=== PATIENT | female | born 1960 | race Caucasian/White ===

== ENCOUNTER 2016-11-12 12:38 | Inpatient (IN) | payer MEDICARE, OTHER ==
[~2016-11-12] VITALS: Ht 167.6 cm; Wt 92.0 kg
[~2016-11-12 12:38] MED LIST: ALBU8I INH; CALC500T19 PO; DARU600 PO; DOCU1CAP39 PO; DOLU1TAB PO; HYDRO10 PO; IPRA17I INH; LEVO.1 PO; MAGN500T4 PO; MORP30SU PO; NORV100T PO; OXYC30TA62; PERC5TAB12 PO; TRUV200300 PO; ZOFR4TAB3 SL
[2016-11-12 12:40] VITALS: BP 132/61; PULSE 86; RESP 24; TEMP 97.7; O2SAT 98
--- NOTE | 2016-11-12 17:45 | PD ---
HPI Chief Complaint: Skin Problem Time Seen by Provider: 17:32 Travel History International Travel<30 days: No Contact w/Intl Traveler<30days: No Traveled to known affect area: No History of Present Illness HPI Patient is a 56-year-old female presents emergency department for evaluation of right lower extremity swelling pain and redness. Patient states been going on for 2 days. Patient states that approximately 6 days ago she was bit/scratched by a dog. She didn't think anything of it at the times that she come in the emergency department to be seen. She denies any fever denies abdominal pain nausea vomiting diarrhea. States this is never happened to her before. PFSH Past Medical History Cancer: Yes (SKIN CANCER) COPD: Yes Cerebrovascular Accident: Yes Diminished Hearing: No Immune Disorder: Yes (HIV) Medical other: Yes (omid's disease) Musculoskeletal: Yes (OSTROPOROSIS) Respiratory: Yes (ASTHMA COPD) Thyroid Disease: Yes Tetanus Vaccination: Unknown Influenza Vaccination: Yes ?: Not Menopausal: Yes Tubal Ligation: Yes Past Surgical History Eye Surgery: Yes (CATARACT SURGERY) Social History Alcohol Use: No Tobacco Use: No Substance Use: No Allergies-Medications (Allergen,Severity, Reaction): Coded Allergies: Zidovudine (Unverified Allergy, Intermediate, rash, 11/12/16) Reported Meds & Prescriptions Reported Meds & Active Scripts Active Reported [Hydromorphone Pump] DIRECTED Magnesium 400 Mg Tab 400 Mg PO HS Crestor (Rosuvastatin Calcium) 5 Mg Tab 5 Mg PO MOWEFR Take 1 tablet at bedtime on Friday,Friday and Friday Diclofenac Sodium DR (Diclofenac Sodium) 75 Mg Tabdr 75 Mg PO BID Hydrocortisone 10 Mg Tab 20 Mg PO DAILY Take with food to decrease GI upset Vitamin D3 (Cholecalciferol) 50,000 Unit Cap 50,000 Units PO Q7D Morphine ER (Morphine Sulfate) 15 Mg Tab 15 Mg PO DAILY Thera (Multiple Vitamin) 1 Tab Tab 1 Tab PO DAILY Linzess (Linaclotide) 290 Mcg Cap 290 Mcg PO DAILY Paxil (Paroxetine HCl) 20 Mg Tablet 20 Mg PO DAILY Dhea 50 mg Tablet (Prasterone (Dhea)/Calcium Carb) 1 Each Tablet 50 Mg PO DAILY Aspirin Adult Low Strength (Aspirin) 81 Mg Tabdr 81 Mg PO DAILY Prezcobix (Darunavir-Cobicistat) 800-150 Mg Tab 1 Tab PO DAILY Descovy (Emtricitabine-Tenofovir Alafenamide) 200-25 mg Tab 1 Tab PO DAILY Tivicay (Dolutegravir Sodium) 50 Mg Tab 50 Mg PO DAILY Review of Systems Except as stated in HPI: all other systems reviewed are Neg Physical Exam Narrative GENERAL: Well-developed well-nourished in no obvious distress. SKIN: Significant erythema of the lower extremity from the tibial prominence distally to the toes, circumferential, multiple ulcerative lesions seen on the anterior aspect of the leg. There is the middle phalanx which is also erythematous. The tip of the first distal phalanx has a very small area but appears to be dry gangrene. HEAD: Atraumatic. Normocephalic. EYES: Pupils equal and round. No scleral icterus. No injection or drainage. ENT: No nasal bleeding or discharge. Mucous membranes pink and moist. NECK: Trachea midline. No JVD. CARDIOVASCULAR: Regular rate and rhythm. No murmur appreciated. RESPIRATORY: No accessory muscle use. Clear to auscultation. Breath sounds equal bilaterally. GASTROINTESTINAL: Abdomen soft, non-tender, nondistended. Hepatic and splenic margins not palpable. MUSCULOSKELETAL: No obvious deformities. No clubbing. No cyanosis. 2+ pitting edema of the lower extremity from the knee distally. NEUROLOGICAL: Awake and alert. No obvious cranial nerve deficits. Motor grossly within normal limits. Normal speech. PSYCHIATRIC: Appropriate mood and affect; insight and judgment normal. Data Data Last Documented VS Vital Signs Date Time Temp Pulse Resp B/P Pulse Ox O2 Delivery O2 Flow Rate FiO2 11/12/16 18:40 63 17 138/64 100 Room Air 11/12/16 12:40 97.7 Orders Complete Blood Count With Diff (11/12/16 17:54) Comprehensive Metabolic Panel (11/12/16 17:54) Prothrombin Time / Inr (Pt) (11/12/16 17:54) Act Partial Throm Time (Ptt) (11/12/16 17:54) Lactic Acid Sepsis Protocol (11/12/16 17:54) Magnesium (Mg) (11/12/16 17:54) Phosphorus (Po4) (11/12/16 17:54) Urinalysis - C+S If Indicated (11/12/16 17:54) Blood Culture (11/12/16 17:54) Ecg Monitoring (11/12/16 17:54) Iv Access Insert/Monitor (11/12/16 17:54) Oximetry (11/12/16 17:54) Oxygen Administration (11/12/16 17:54) Chest, Single Ap (11/12/16 ) Shoulder, Complete (>2vws) (11/12/16 ) Urine Culture (11/12/16 18:00) Tibia/Fibula (Ap/Lat) (11/12/16 ) Us Leg Venous Doppler (11/12/16 19:18) Vancomycin Inj (Vancomycin Inj) (11/12/16 19:30) Piperacil-Tazo 4.5 Gm Premix (Zosyn 4.5 (11/12/16 19:30) Admit Order (Ed Use Only) (11/12/16 ) Labs Laboratory Tests Test 11/12/16 11/12/16 18:00 18:10 White Blood Count 8.4 TH/MM3 Red Blood Count 3.92 MIL/MM3 Hemoglobin 12.8 GM/DL Hematocrit 37.5 % Mean Corpuscular Volume 95.8 FL Mean Corpuscular Hemoglobin 32.6 PG Mean Corpuscular Hemoglobin 34.0 % Concent Red Cell Distribution Width 15.4 % Platelet Count 104 TH/MM3 Mean Platelet Volume 9.0 FL Neutrophils (%) (Auto) 91.1 % Lymphocytes (%) (Auto) 5.9 % Monocytes (%) (Auto) 2.7 % Eosinophils (%) (Auto) 0.2 % Basophils (%) (Auto) 0.1 % Neutrophils # (Auto) 7.7 TH/MM3 Lymphocytes # (Auto) 0.5 TH/MM3 Monocytes # (Auto) 0.2 TH/MM3 Eosinophils # (Auto) 0.0 TH/MM3 Basophils # (Auto) 0.0 TH/MM3 CBC Comment DIFF FINAL Differential Comment Prothrombin Time 10.1 SEC Prothromb Time International 0.9 RATIO Ratio Activated Partial 25.9 SEC Thromboplast Time Urine Color YELLOW Urine Turbidity HAZY Urine pH 6.0 Urine Specific [place] 1.021 Urine Protein 30 mg/dL Urine Glucose (UA) 300 mg/dL Urine Ketones NEG mg/dL Urine Occult Blood SMALL Urine Nitrite NEG Urine Bilirubin NEG Urine Urobilinogen LESS THAN 2.0 MG/DL Urine Leukocyte Esterase NEG Urine RBC 9 /hpf Urine WBC 3 /hpf Urine Squamous Epithelial <1 /hpf Cells Urine Amorphous Sediment RARE Urine Bacteria MANY /hpf Microscopic Urinalysis Comment CATH-CULTURE IND Sodium Level 137 MEQ/L Potassium Level 3.6 MEQ/L Chloride Level 102 MEQ/L Carbon Dioxide Level 30.1 MEQ/L Anion Gap 5 MEQ/L Blood Urea Nitrogen 26 MG/DL Creatinine 1.00 MG/DL Estimat Glomerular Filtration 58 ML/MIN Rate Random Glucose 193 MG/DL Calcium Level 9.5 MG/DL Phosphorus Level 2.0 MG/DL Magnesium Level 2.3 MG/DL Total Bilirubin 0.3 MG/DL Aspartate Amino Transf 45 U/L (AST/SGOT) Alanine Aminotransferase 72 U/L (ALT/SGPT) Alkaline Phosphatase 62 U/L Total Protein 6.3 GM/DL Albumin 2.5 GM/DL Lactic Acid Level 2.0 mmol/L MDM Medical Decision Making Medical Screen Exam Complete: Yes Emergency Medical Condition: Yes Differential Diagnosis Advanced dog bite cellulitis of lower extremity, DVT, sepsis Narrative Course Patient roomed in emergency department, she was given vancomycin and Zosyn, her labs are reassuring, DVT ultrasound negative. The patient also had complaints of shoulder pain secondary to a fall as well as cough. X-rays of her shoulder and chest were negative. X-rays of her tib-fib showed no gas pockets in her cellulitis is not progressed while in the emergency department. Discussed with Dr. Haile my concern for advanced cellulitis in the presence of a dog bite/ scratch requires inpatient therapy and she is agreeable. Diagnosis Primary Impression: Pasteurella cellulitis due to dog bite Disposition: DISCHARGE HOME Condition: Stable Mika Grey MD Nov 12, 2016 17:45
[2016-11-12 18:16] VITALS: O2SAT 97
[2016-11-12] MEDS ORDERED: ASPI1TAB91 PO (18:28)
[2016-11-12] MEDS ORDERED: PAXI20TA10 PO (18:28)
[2016-11-12] MEDS ORDERED: LINA290C PO (18:28)
[2016-11-12] MEDS ORDERED: ROSU5 PO (18:28)
[2016-11-12] MEDS ORDERED: THERTAB56 PO (18:28)
[2016-11-12] MEDS ORDERED: MORP1TAB24 PO (18:28)
[2016-11-12] MEDS ORDERED: DHEA50TA2 PO (18:28)
[2016-11-12] MEDS ORDERED: HYDROMORPHONE (18:28)
[2016-11-12] MEDS ORDERED: DICL75TA PO (18:28)
[2016-11-12] MEDS ORDERED: CHOL1CAP34 PO (18:28)
[2016-11-12] MEDS ORDERED: HYDR10TA65 PO (18:28)
[2016-11-12] MEDS ORDERED: DOLU1TAB PO (18:28)
[2016-11-12] MEDS ORDERED: EMTR1TAB4 PO (18:28)
[2016-11-12] MEDS ORDERED: DARU1TAB2 PO (18:28)
[2016-11-12] MEDS ORDERED: MAGN1TAB14 PO (18:28)
[2016-11-12] MEDS ORDERED: HYDROMORPHONE PUMP (18:30)
[2016-11-12 18:37] LABS: AUTOMATED NEUTROPHIL # 7.7 TH/MM3 (1.8-7.7); BASOPHIL % 0.1 % (0.0-2.0); EOSINOPHIL % 0.2 % (0.0-4.0); HEMATOCRIT 37.5 % (35.0-46.0); HEMO FLAGS DIFF FINAL; LYMPH % 5.9 % (9.0-44.0); LYMPHOCYTE # 0.5 TH/MM3 (1.0-4.8); MEAN CELL VOLUME 95.8 FL (80.0-100.0); MEAN CORPUSCULAR HEMOGLOBIN 32.6 PG (27.0-34.0); MONO % 2.7 % (0.0-8.0); NEUT % 91.1 % (16.0-70.0); PLATELET COUNT 104 TH/MM3 (150-450); RED BLOOD COUNT 3.92 MIL/MM3 (4.00-5.30); RED CELL DISTRIBUTION WIDTH 15.4 % (11.6-17.2); WHITE BLOOD COUNT 8.4 TH/MM3 (4.0-11.0)
[2016-11-12 18:38] LABS: BACTERIA, URINE MANY /hpf; BLOOD, URINE SMALL (NEG); GLUCOSE,URINE 300 mg/dL (NEG); KETONE, URINE NEG (NEG); NITRITE,URINE NEG (NEG); SQUAMOUS EPITHELIAL CELL URINE <1 /hpf (0-5); URINE COLOR YELLOW (YELLW/STRAW)
[2016-11-12 18:40] VITALS: BP 138/64; PULSE 63; RESP 17; O2SAT 100
[2016-11-12 18:40] LABS: COMMENT (UR) CATH-CULTURE IND; CULTURE IF INDICATED CATH CULTURE IND
--- NOTE | 2016-11-12 18:45 | RADRPT ---
EXAM DATE/TIME: 11/12/2016 18:36 [facility] COMPARISON: No previous studies available for comparison. INDICATIONS : Chest pain. MEDICAL HISTORY : None. SURGICAL HISTORY : Bilateral shoulder replacements. ENCOUNTER: Initial ACUITY: 1 day PAIN SCORE: 0/10 LOCATION: Bilateral chest FINDINGS: A single view of the chest demonstrates the lungs to be symmetrically aerated without evidence of mas s, infiltrate or effusion. Linear radiopaque densities in the upper lobes. Minimal subsegmental atele ctasis versus scar in the lower lobes. Heart mildly enlarged. The cardiomediastinal contours are unre markable. Bilateral humeral prostheses. CONCLUSION: 1. Bilateral upper lobe and bibasilar scarring. 2. Cardiomegaly. Roberto Foss MD on November 12, 2016 at 18:41 Board Certified Radiologist. This report was verified electronically.
--- NOTE | 2016-11-12 18:47 | RADRPT ---
EXAM DATE/TIME: 11/12/2016 18:37 [facility] COMPARISON: No previous studies available for comparison. INDICATIONS : Shoulder pain. MEDICAL HISTORY : None. SURGICAL HISTORY : Bilateral shoulder replacements. ENCOUNTER: Initial ACUITY: 1 day PAIN SCORE: 0/10 LOCATION: Left shoulder FINDINGS: Multiple view examination of the left shoulder demonstrates Left humeral prosthesis. No hardware loos ening or humeral fracture. Large bony fragment seen inferiorly likely part of the glenoid. This is li estephanie chronic. Bony mineralization is normal. CONCLUSION: 1. Left humeral prosthesis. 2. Large ossified density likely related to fragment arising from the inferior glenoid. This is likel y related to chronic fracture. Roberto Foss MD on November 12, 2016 at 18:44 Board Certified Radiologist. This report was verified electronically.
[2016-11-12 18:52] LABS: APTT (PATIENT) 25.9 SEC (24.3-30.1); INTERNATIONAL NORMALIZED RATIO 0.9 RATIO; PROTHROMBIN TIME - PATIENT 10.1 SEC (9.8-11.6)
[2016-11-12 19:03] LABS: ANION GAP 5 MEQ/L (5-15); AST (GOT) 45 U/L (15-37); BICARBONATE 30.1 MEQ/L (21.0-32.0); BLOOD UREA NITROGEN 26 MG/DL (7-18); CHLORIDE 102 MEQ/L (98-107); GLOMERULAR FILTRATION RATE 58 ML/MIN (>89); MAGNESIUM 2.3 MG/DL (1.5-2.5); POTASSIUM 3.6 MEQ/L (3.5-5.1); SODIUM (NA) 137 MEQ/L (136-145)
[2016-11-12 19:04] LABS: ALT (GPT) 72 U/L (10-53)
[2016-11-12 19:07] LABS: ALKALINE PHOSPHATASE 62 U/L (45-117); TOTAL BILIRUBIN ADULT 0.3 MG/DL (0.2-1.0)
[2016-11-12] MEDS ORDERED: VANCOMYCIN INJ 1,000 MG in SODIUM CHLOR 0.9% 250 ML INJ 250 ML IV ONE (19:30)
[2016-11-12] MEDS ORDERED: PIPERACIL-TAZO 4.5 GM PREMIX 100 ML IV ONE (19:30)
--- NOTE | 2016-11-12 19:46 | RADRPT ---
EXAM DATE/TIME: 11/12/2016 19:20 [facility] COMPARISON: No previous studies available for comparison. INDICATIONS : Right leg pain and swelling. MEDICAL HISTORY : None. SURGICAL HISTORY : None. ENCOUNTER: Initial ACUITY: 1 week PAIN SCORE: 10/10 LOCATION: Right leg. FINDINGS: Two view examination of the right tibia demonstrates no evidence of fracture or dislocation. Bony mi neralization is normal. Diffuse soft tissue swelling. Small defect in the skin medially along the mid to lower left leg. CONCLUSION: Soft tissue swelling with possible skin defect. No acute bony abnormality. Roberto Foss MD on November 12, 2016 at 19:43 Board Certified Radiologist. This report was verified electronically.
--- NOTE | 2016-11-12 20:11 | RADRPT ---
EXAM DATE/TIME: 11/12/2016 19:35 [facility] COMPARISON: No previous studies available for comparison. INDICATIONS : Right leg redness and swelling. MEDICAL HISTORY : Chronic obstructive pulmonary disease. Thyroid disease. Cerebrovascular a ccident. Asthma. HIV. Osteoporosis. Carcinoma, skin. [place]'s disease. SURGICAL HISTORY :Tubal ligation. Cataract surgery. Bilateral shoulder replacement. ENCOUNTER: Initial ACUITY: 1 week PAIN SCORE: 8/10 LOCATION: Right leg. TECHNIQUE: Venous ultrasound of the leg was performed from the inguinal ligament to the proximal calf. Real-time, color Doppler and spectral tracing, compression and augmentation techniques were us ed. FINDINGS: There is normal compressibility of the deep venous system from the inguinal region to the proximal ca lf. No echogenic clot is seen in the lumen of the common femoral, femoral, popliteal, and posterior tibial veins. There is a normal response of the venous system to proximal and distal augmentation an d respiration. CONCLUSION: No DVT right leg Roberto Foss MD on November 12, 2016 at 20:02 Board Certified Radiologist. This report was verified electronically.
[2016-11-12] MEDS ORDERED: SODIUM CHLORIDE 0.9% FLUSH 10 ML FLUSH IV FLUSH PRN (21:45)
[2016-11-12] MEDS ORDERED: NALOXONE HCL 0.4 MG/ML AMP IV PRN (21:45)
[2016-11-12 22:00] VITALS: BP 150/80; PULSE 75; RESP 16; O2SAT 95
[2016-11-13 02:17] VITALS: BP 166/85; PULSE 60; RESP 20; TEMP 98; O2SAT 92
[2016-11-13] MEDS: CLINDAMYCIN INJ 900 MG in SODIUM CHLORIDE 0.9% INJ 100 ML IV SCH ×4 (03:04→23:06)
[2016-11-13] MEDS: AMPICILLIN-SULBACTAM INJ 3 GM in SODIUM CHLORIDE 0.9% INJ 100 ML IV SCH ×4 (03:42→21:34)
[2016-11-13 04:02] VITALS: PULSE 56
[2016-11-13 08:00] VITALS: BP 180/80; PULSE 59; RESP 18; TEMP 96.3; O2SAT 99
[2016-11-13] MEDS: SODIUM CHLORIDE 0.9% FLUSH 10 ML FLUSH IV FLUSH SCH ×2 (09:00→21:35)
--- NOTE | 2016-11-13 10:48 | HHI.HP ---
[facility] Service [facility] Primary Care Physician Non-Staff Admission Diagnosis Dog Bite Cellulitis. Diagnoses: Chief Complaint: leg infection Travel History International Travel<30 Days: No Contact w/Intl Traveler <30 Da: No Traveled to Known Affected Are: No History of Present Illness Written by Steffany Borrero, acting as scribe for Dr. Veronica on 11/13/16 at 10:43. This note was transcribed by scribOLYA Wooten. I, Dr. Sal Veronica personally performed the history, physical exam, and medical decision making; and confirmed the accuracy of the information in the transcribed note. Authenticated by Dr. Sal Veronica on 11/13/16 at 22:14. 56-year-old female with history of [place]'s disease, HIV, asthma, COPD, osteoporosis, chronic pain with Dilaudid pain pump, presents with multiple complaints including right leg infection [id number], left shoulder pain, fall, sore throat, and cough. The patient's main concern is her right leg infection. She reports 1 month ago her dog jumped up into her bed and scratched her right leg resulting in a wound. She states she has been trying to keep it clean, and finished a course of unknown oral antibiotics prescribed by her PCP however her symptoms continue to worsen. She states she's also been in a swimming pool which she believes is making it worse. She states then 2 days ago her right leg became significantly more erythematous, edematous, and painful; denies any drainage. She reports subjective fevers at home, temp 99.8. She also reports left shoulder pain after a fall. She states she tripped going up the stairs. She states she's fallen 3 times recently. Denies loss of consciousness. She also reports sore throat which she believes is related to thrush. She has been taking nystatin for thrush with not much relief. She has cough productive of green sputum. Denies any chest pain or shortness of breath. She follows with Dr. Becker for HIV, compliant with medications, reportedly last CD4 count over 800. The patient has no other medical complaints at this time. 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 Becker Chronic pain COPD/asthma Past Surgical History Kyphoplasty x2 Shoulder replacement x2 Pain pump placement Cataract surgery Reported Medications [Hydromorphone Pump] DIRECTED Magnesium 400 Mg Tab 400 Mg PO HS Crestor (Rosuvastatin Calcium) 5 Mg Tab 5 Mg PO MOWEFR Take 1 tablet at bedtime on Friday,Friday and Friday Diclofenac Sodium DR (Diclofenac Sodium) 75 Mg Tabdr 75 Mg PO BID Hydrocortisone 10 Mg Tab 20 Mg PO DAILY Take with food to decrease GI upset Vitamin D3 (Cholecalciferol) 50,000 Unit Cap 50,000 Units PO Q7D Morphine ER (Morphine Sulfate) 15 Mg Tab 15 Mg PO DAILY Thera (Multiple Vitamin) 1 Tab Tab 1 Tab PO DAILY Linzess (Linaclotide) 290 Mcg Cap 290 Mcg PO DAILY Paxil (Paroxetine HCl) 20 Mg Tablet 20 Mg PO DAILY Dhea 50 mg Tablet (Prasterone (Dhea)/Calcium Carb) 1 Each Tablet 50 Mg PO DAILY Aspirin Adult Low Strength (Aspirin) 81 Mg Tabdr 81 Mg PO DAILY Prezcobix (Darunavir-Cobicistat) 800-150 Mg Tab 1 Tab PO DAILY Descovy (Emtricitabine-Tenofovir Alafenamide) 200-25 mg Tab 1 Tab PO DAILY Tivicay (Dolutegravir Sodium) 50 Mg Tab 50 Mg PO DAILY Allergies: Coded Allergies: Zidovudine (Unverified Allergy, Intermediate, rash, 11/12/16) Active Ordered Medications Current Medications Medications (Trade) Dose Ordered Sig/Cornelius Route Start Time Stop Time Status Last Admin (NS Flush) 2 ml UNSCH PRN IV FLUSH 11/12/16 21:45 (NS Flush) 2 ml BID IV FLUSH 11/13/16 09:00 11/13/16 09:00 Naloxone HCl 0.4 mg 0.4 mg UNSCH PRN IV 11/12/16 21:45 Ampicillin Sodium/ Sulbactam Sodium 3 gm/Sodium Chloride 100 ml @ 200 mls/hr Q6H IV 11/13/16 03:00 11/13/16 10:13 (Cleocin Inj/NS Inj) 106 ml @ 212 mls/hr Q6H IV 11/13/16 02:00 11/13/16 08:57 Family History Patient is adopted, does not know biological history. Social History Prior tobacco use, smoked cigarettes for 25years, quit in 2014 Denies any current tobacco, alcohol, or illicit drug use. Physical Exam Vital Signs Vital Signs Date Time Temp Pulse Resp B/P Pulse Ox O2 Delivery O2 Flow Rate FiO2 11/13/16 04:02 56 11/13/16 02:17 98.0 60 20 166/85 92 11/12/16 22:00 75 16 150/80 95 Room Air 11/12/16 18:40 63 17 138/64 100 Room Air 11/12/16 18:16 97 Room Air 11/12/16 18:16 97 Room Air 11/12/16 12:40 97.7 86 24 132/61 98 Physical Exam GENERAL: Well-nourished, well-developed obese female patient in [facility]. SKIN: Warm and dry. RLE with diffuse erythema/warmth/edema, open wound to medial smith approx 2cm, smaller wound at anterior smith with minimal purulent drainage. HEAD: Normocephalic. Atraumatic. EYES: Pupils equal and round. No scleral icterus. No injection or drainage. ENT: No nasal bleeding or discharge. Mucous membranes pink and moist. Erythematous oropharyngeal mucosa with overlying white plaques. NECK: Supple. Trachea midline. CARDIOVASCULAR: Regular rate and rhythm. S1, S2 noted. No murmur appreciated. RESPIRATORY: No accessory muscle use. Clear to auscultation. Breath sounds equal bilaterally. GASTROINTESTINAL: Abdomen soft, non-tender, nondistended. Normoactive bowel sounds x4. MUSCULOSKELETAL: No obvious deformities. 2+ right lower extremity edema, 1+ left lower extremity edema. NEUROLOGICAL: Awake and alert. No obvious cranial nerve deficits. Motor grossly within normal limits. Normal speech. PSYCHIATRIC: Appropriate mood and affect; insight and judgment normal. Laboratory Laboratory Tests Test 11/12/16 11/12/16 18:00 18:10 White Blood Count 8.4 Red Blood Count 3.92 Hemoglobin 12.8 Hematocrit 37.5 Mean Corpuscular Volume 95.8 Mean Corpuscular Hemoglobin 32.6 Mean Corpuscular Hemoglobin 34.0 Concent Red Cell Distribution Width 15.4 Platelet Count 104 Mean Platelet Volume 9.0 Neutrophils (%) (Auto) 91.1 Lymphocytes (%) (Auto) 5.9 Monocytes (%) (Auto) 2.7 Eosinophils (%) (Auto) 0.2 Basophils (%) (Auto) 0.1 Neutrophils # (Auto) 7.7 Lymphocytes # (Auto) 0.5 Monocytes # (Auto) 0.2 Eosinophils # (Auto) 0.0 Basophils # (Auto) 0.0 CBC Comment DIFF FINAL Differential Comment Prothrombin Time 10.1 Prothromb Time International 0.9 Ratio Activated Partial 25.9 Thromboplast Time Urine Color YELLOW Urine Turbidity HAZY Urine pH 6.0 Urine Specific [place] 1.021 Urine Protein 30 Urine Glucose (UA) 300 Urine Ketones NEG Urine Occult Blood SMALL Urine Nitrite NEG Urine Bilirubin NEG Urine Urobilinogen LESS THAN 2.0 Urine Leukocyte Esterase NEG Urine RBC 9 Urine WBC 3 Urine Squamous Epithelial <1 Cells Urine Amorphous Sediment RARE Urine Bacteria MANY Microscopic Urinalysis Comment CATH-CULTURE IND Sodium Level 137 Potassium Level 3.6 Chloride Level 102 Carbon Dioxide Level 30.1 Anion Gap 5 Blood Urea Nitrogen 26 Creatinine 1.00 Estimat Glomerular Filtration 58 Rate Random Glucose 193 Calcium Level 9.5 Phosphorus Level 2.0 Magnesium Level 2.3 Total Bilirubin 0.3 Aspartate Amino Transf 45 (AST/SGOT) Alanine Aminotransferase 72 (ALT/SGPT) Alkaline Phosphatase 62 Total Protein 6.3 Albumin 2.5 Lactic Acid Level 2.0 Date/Time Procedure Status Source Growth 11/12/16 18:10 Aerobic Blood Culture Received Blood Peripheral Pending 11/12/16 18:10 Anaerobic Blood Culture Received Blood Peripheral Pending 11/12/16 18:00 Urine Culture Received Urine Catheterized Urine Pending Result Diagram: 11/12/16 1800 11/12/16 1800 Imaging Last Impressions Lower Extremity Ultrasound 11/12/16 1918 Signed Impressions: Service Date/Time: Saturday, November 12, 2016 19:35 - CONCLUSION: No DVT right leg Roberto Foss MD Tibia/Fibula X-Ray 11/12/16 0000 Signed Impressions: Service Date/Time: Saturday, November 12, 2016 19:20 - CONCLUSION: Soft tissue swelling with possible skin defect. No acute bony abnormality. Roberto Foss MD Shoulder X-Ray 11/12/16 0000 Signed Impressions: Service Date/Time: Saturday, November 12, 2016 18:37 - CONCLUSION: 1. Left humeral prosthesis. 2. Large ossified density likely related to fragment arising from the inferior glenoid. This is likely related to chronic fracture. Roberto Foss MD Chest X-Ray 11/12/16 0000 Signed Impressions: Service Date/Time: Saturday, November 12, 2016 18:36 - CONCLUSION: 1. Bilateral upper lobe and bibasilar scarring. 2. Cardiomegaly. Roberto Foss MD Assessment and Plan Problem List: (1) Pasteurella cellulitis due to dog bite ICD Code: A28.0 Status: Acute (2) HIV (human immunodeficiency virus infection) ICD Code: Z21 Status: Chronic (3) Addisons disease ICD Code: E27.1 Status: Chronic (4) COPD (chronic obstructive pulmonary disease) ICD Code: J44.9 Status: Chronic (5) Falls ICD Code: W19.XXXA Status: Acute (6) Shoulder pain ICD Code: M25.519 Status: Acute (7) Chronic pain ICD Code: G89.29 Status: Chronic Assessment and Plan 56-year-old female with history of [place]'s disease, HIV, asthma, COPD, osteoporosis, chronic pain with Dilaudid pain pump, presents with multiple complaints including right leg infection [id number], left shoulder pain, fall, sore throat, and cough. Right Leg Cellulitis: Failed Outpatient Treatment with oral antibiotics; Immunocompromised with HIV. Concern for pasteurella with dog bite/scratch. Right tib-fib xray images reviewed, shows soft tissue swelling with possible skin defect, no fracture. RLE Doppler U/S negative for DVT. Afebrile, no leukocytosis, however CBC with left shift. Lactic acid 2.0. -Continue antibiotics with IV Unasyn and IV Clinda -Blood cultures with NGTD, will monitor -Obtain wound culture -Pain control with IV Dilaudid prn -Consult wound care -Monitor for improvement Oropharyngeal Candidiasis: exam consistent with thrush. Immunocompromised secondary to HIV. Failed treatment with Nystatin as outpatient. -started on Diflucan 150mg po qd -monitor for improvement Left Shoulder Pain: secondary to fall. Shoulder xray with left humeral prosthesis; large ossified density likely related to fragment arising from inferior glenoid, likely chronic fracture. -continue pain control -consult PT -outpatient f/up with orthopedics Recent Falls: x3 per patient. Unclear etiology, possibly related to ongoing infection, weakness. -consult PT [place]'s Disease: chronic, follows with Dr. Chen as outpatient. -continue patient's hydrocortisone HIV: chronic, stable, reportedly last CD4 count >800. Follow[address] Becker as outpatient -continue home medications Chronic Pain/Osteoporosis: chronic, stable, follows with Dr. Jones -patient reports supposed to have IV dilaudid pain pump refilled today as outpatient -will give IV dilaudid prn for now -outpatient f/up with pain management Asthma/COPD: chronic, stable, does not appear to be in exacerbation -duonebs prn Hypophosphatemia: phos 2.0 -give K-Phos 500mg daily -monitor electrolytes DVT Prophylaxis: Lovenox Code Status Full Code Discussed Condition With Patient, patient's family member at bedside, CDU Steffany Leroy PA-C Nov 13, 2016 10:48 Marcos Veronica DO Nov 13, 2016 22:15
[2016-11-13] MEDS ORDERED: LACTULOSE SYRUP 20 GM/30 ML CUP PO PRN (11:00)
[2016-11-13] MEDS ORDERED: NON-FORMULARY DRUG (Linaclotide (Linzess) 290 MCG) PO SCH (11:00)
[2016-11-13] MEDS ORDERED: SENNOSIDES 8.6 MG TAB PO PRN (11:00)
[2016-11-13] MEDS ORDERED: MULTIVITAMIN TAB PO SCH (11:00)
[2016-11-13] MEDS ORDERED: MAGNESIUM HYDROXIDE SUSP 30 ML CUP PO PRN (11:00)
[2016-11-13] MEDS ORDERED: BISACODYL 10 MG SUPP RECTAL PRN (11:00)
[2016-11-13 12:00] VITALS: BP 125/60; PULSE 77; RESP 18; TEMP 96.6; O2SAT 98
[2016-11-13] MEDS: ASPIRIN EC 81 MG TABEC PO SCH (13:00)
[2016-11-13] MEDS: DICLOFENAC SODIUM 75 MG DELAYED RELEASE TAB PO SCH ×2 (13:00→21:35)
[2016-11-13] MEDS: PARoxetine HCL 20 MG TAB PO SCH (13:00)
[2016-11-13] MEDS ORDERED: LEVO100T5 PO (13:00)
[2016-11-13] MEDS: HYDROCORTISONE 10 MG TAB PO SCH (13:00)
[2016-11-13] MEDS: MULTIVITAMIN TAB PO SCH (13:00)
[2016-11-13] MEDS ORDERED: LAMI250T PO (13:03)
[2016-11-13] MEDS ORDERED: RESP: ALBUTEROL 2.5 MG/IPRATROPIUM 0.5 MG NEB (PRN) NEB (13:45)
[2016-11-13] MEDS: DOLUTEGRAVIR SODIUM 50 MG TAB PO SCH (14:00)
[2016-11-13] MEDS: FLUCONAZOLE 100 MG TAB PO SCH (14:09)
[2016-11-13] MEDS: HYDROmorphone HCL PF 1 MG/ML VIAL IV PUSH PRN (14:18)
[2016-11-13 15:17] VITALS: BP 120/70; PULSE 76; RESP 18; TEMP 96.7; O2SAT 98
[2016-11-13] MEDS ORDERED: ATORVASTATIN 10 MG TAB PO SCH (15:45)
[2016-11-13] MEDS: POTASSIUM PHOSPHATE MONOBASIC 500 MG TAB PO SCH (16:31)
[2016-11-13 19:33] VITALS: BP 132/70; PULSE 78; RESP 21; TEMP 97.2; O2SAT 98
[2016-11-13] MEDS: ENOXAPARIN SODIUM 40 MG/0.4 ML SYRINGE SQ SCH (21:35)
[2016-11-13] MEDS: MAGNESIUM OXIDE 400 MG TAB PO SCH (21:35)
[2016-11-13] MEDS: DOCUSATE SODIUM 50 MG/SENNA 8.6 MG TAB PO SCH (21:35)
[2016-11-14 00:20] VITALS: BP 156/78; PULSE 79; RESP 18; TEMP 96.4; O2SAT 96
[2016-11-14] MEDS: CLINDAMYCIN INJ 900 MG in SODIUM CHLORIDE 0.9% INJ 100 ML IV SCH ×4 (03:20→21:11)
[2016-11-14] MEDS: AMPICILLIN-SULBACTAM INJ 3 GM in SODIUM CHLORIDE 0.9% INJ 100 ML IV SCH ×4 (03:21→20:17)
[2016-11-14] MEDS: LEVOTHYROXINE SODIUM 100 MCG TAB PO SCH (05:18)
[2016-11-14] MEDS: FLUCONAZOLE 100 MG TAB PO SCH (08:21)
[2016-11-14] MEDS: DOCUSATE SODIUM 50 MG/SENNA 8.6 MG TAB PO SCH ×2 (08:21→20:13)
[2016-11-14] MEDS: POTASSIUM PHOSPHATE MONOBASIC 500 MG TAB PO SCH (08:21)
[2016-11-14] MEDS: SODIUM CHLORIDE 0.9% FLUSH 10 ML FLUSH IV FLUSH SCH ×2 (08:27→20:17)
[2016-11-14 08:35] VITALS: PULSE 68; RESP 18; TEMP 98.3; O2SAT 99
[2016-11-14] MEDS: ASPIRIN EC 81 MG TABEC PO SCH (08:40)
[2016-11-14] MEDS: MULTIVITAMIN TAB PO SCH (08:40)
[2016-11-14] MEDS: PARoxetine HCL 20 MG TAB PO SCH (08:40)
[2016-11-14] MEDS: HYDROCORTISONE 10 MG TAB PO SCH (08:40)
[2016-11-14] MEDS: DOLUTEGRAVIR SODIUM 50 MG TAB PO SCH (08:40)
[2016-11-14] MEDS: DICLOFENAC SODIUM 75 MG DELAYED RELEASE TAB PO SCH ×2 (08:40→21:11)
[2016-11-14] MEDS: PATIENT OWN MEDICATION (Emtricitabine-Tenofovir Alafenamide (Descovy) 1 TAB) PO SCH (09:00)
[2016-11-14] MEDS: DARUNAVIR COBICISTAT PO SCH (09:00)
[2016-11-14 09:25] VITALS: BP 128/82
--- NOTE | 2016-11-14 12:18 | HHI.PR ---
Subjective Remarks Follow up for RLE cellulitis. The patient reports mild improvement of RLE erythema, edema, and pain overnight. Denies fevers or chills. Denies any abdominal pain, nausea/vomiting. She is having normal formed BMs, denies diarrhea. She has been ambulating the unit without much difficulty. She has no other medical complaints at this time. Of note, patient states her dilaudid pump has not run out yet, it will start beeping when it does. She declines additional IV dilaudid at this time. States her pain is well controlled. Objective Vitals Vital Signs Date Time Temp Pulse Resp B/P Pulse Ox O2 Delivery O2 Flow Rate FiO2 11/14/16 09:25 128/82 11/14/16 08:35 98.3 68 18 99 11/14/16 00:20 96.4 79 18 156/78 96 11/13/16 19:33 97.2 78 21 132/70 98 11/13/16 15:17 96.7 76 18 120/70 98 Result Diagram: 11/12/16 1800 11/12/16 1800 Imaging Last Impressions Lower Extremity Ultrasound 11/12/16 1918 Signed Impressions: Service Date/Time: Saturday, November 12, 2016 19:35 - CONCLUSION: No DVT right leg Roberto Foss MD Tibia/Fibula X-Ray 11/12/16 0000 Signed Impressions: Service Date/Time: Saturday, November 12, 2016 19:20 - CONCLUSION: Soft tissue swelling with possible skin defect. No acute bony abnormality. Roberto Foss MD Shoulder X-Ray 11/12/16 0000 Signed Impressions: Service Date/Time: Saturday, November 12, 2016 18:37 - CONCLUSION: 1. Left humeral prosthesis. 2. Large ossified density likely related to fragment arising from the inferior glenoid. This is likely related to chronic fracture. Roberto Foss MD Chest X-Ray 11/12/16 0000 Signed Impressions: Service Date/Time: Saturday, November 12, 2016 18:36 - CONCLUSION: 1. Bilateral upper lobe and bibasilar scarring. 2. Cardiomegaly. Roberto Foss MD Objective Remarks GENERAL: Well-nourished, well-developed obese female patient in NAD. SKIN: Warm and dry. RLE with diffuse erythema/warmth/edema, open wound to medial smith approx 2cm, smaller wound at anterior smith with minimal purulent drainage. HEENT: Normocephalic. Atraumatic.Pupils equal and round. Mildly Erythematous oropharyngeal mucosa with overlying white plaques. NECK: Supple. Trachea midline. CARDIOVASCULAR: Regular rate and rhythm. S1, S2 noted. No murmur appreciated. RESPIRATORY: No accessory muscle use. Clear to auscultation. Breath sounds equal bilaterally. GASTROINTESTINAL: Abdomen soft, non-tender, nondistended. Normoactive bowel sounds x4. MUSCULOSKELETAL: No obvious deformities. 2+ right lower extremity edema, 1+ left lower extremity edema. NEUROLOGICAL: Awake and alert. No obvious cranial nerve deficits. Motor grossly within normal limits. Normal speech. PSYCHIATRIC: Appropriate mood and affect; insight and judgment normal. Medications and IVs Current Medications Medications (Trade) Dose Ordered Sig/Cornelius Route Start Time Stop Time Status Last Admin (NS Flush) 2 ml UNSCH PRN IV FLUSH 11/12/16 21:45 (NS Flush) 2 ml BID IV FLUSH 11/13/16 09:00 11/14/16 08:27 Naloxone HCl 0.4 mg 0.4 mg UNSCH PRN IV 11/12/16 21:45 Ampicillin Sodium/ Sulbactam Sodium 3 gm/Sodium Chloride 100 ml @ 200 mls/hr Q6H IV 11/13/16 03:00 11/14/16 09:29 (Cleocin Inj/NS Inj) 106 ml @ 212 mls/hr Q6H IV 11/13/16 02:00 11/14/16 08:20 (Diflucan) 150 mg DAILY PO 11/13/16 13:00 11/14/16 08:21 (Ecotrin Ec) 81 mg DAILY PO 11/13/16 13:00 11/14/16 08:40 (Voltaren Dr) 75 mg BID PO 11/13/16 13:00 11/14/16 08:40 (Cortef) 20 mg DAILY PO 11/13/16 13:00 11/14/16 08:40 (Mag-Ox) 400 mg HS PO 11/13/16 21:00 11/13/16 21:35 (Paxil) 20 mg DAILY PO 11/13/16 13:00 11/14/16 08:40 Patient Own Medication PT OWN MED: (Darunavir-Cobicista... DAILY PO 11/14/16 09:00 11/14/16 09:00 Patient Own Medication PT OWN MED: (Emtricitabine-Tenofo... DAILY PO 11/14/16 09:00 11/14/16 09:00 (Lipitor) 10 mg MoWeFr PO 11/13/16 15:45 Hold (Sharmin-Colace) 2 tab BID PO 11/13/16 21:00 11/14/16 08:21 (Milk Of Magnesia Liq) 30 ml Q12H PRN PO 11/13/16 11:00 (Senokot) 17.2 mg Q12H PRN PO 11/13/16 11:00 (Dulcolax Supp) 10 mg DAILY PRN RECTAL 11/13/16 11:00 (Lactulose Liq) 30 ml DAILY PRN PO 11/13/16 11:00 (Dilaudid Pf Inj) 0.5 mg Q4H PRN IV PUSH 11/13/16 11:00 11/13/16 14:18 (Dilaudid Pf Inj) 1 mg Q4H PRN IV PUSH 11/13/16 11:00 (Theragran) 1 tab DAILY PO 11/13/16 13:00 11/14/16 08:40 (Synthroid) 100 mcg DAILY@0600 PO 11/14/16 06:00 11/14/16 05:18 (Lovenox Inj) 40 mg HS SQ 11/13/16 21:00 11/13/16 21:35 (K-Phos) 500 mg DAILY PO 11/13/16 15:00 11/14/16 08:21 A/P Problem List: (1) Pasteurella cellulitis due to dog bite ICD Code: A28.0 Status: Acute (2) HIV (human immunodeficiency virus infection) ICD Code: Z21 Status: Chronic (3) 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 Right Leg Cellulitis: Failed Outpatient Treatment with oral antibiotics; Immunocompromised with HIV. Concern for pasteurella with dog bite/scratch. Right tib-fib xray images reviewed, shows soft tissue swelling with possible skin defect, no fracture. RLE Doppler U/S negative for DVT. Afebrile, no leukocytosis, however CBC with left shift. Lactic acid 2.0. -Continue antibiotics with IV Unasyn and IV Clinda -Blood cultures with 1/4 growing Staph Sp Coagulase Negative, suspect contaminant, repeat blood cultures and monitor results -Wound culture results pending -Pain control with IV Dilaudid prn -Consult wound care -Monitor for improvement UTI: UA with +bacteria. Urine culture with Klebsiella pneumoniae. -on antibiotics as above Oropharyngeal Candidiasis: exam consistent with thrush. Immunocompromised secondary to HIV. Failed treatment with Nystatin as outpatient. -started on Diflucan 150mg po qd -monitor for improvement Left Shoulder Pain: secondary to fall. Shoulder xray with left humeral prosthesis; large ossified density likely related to fragment arising from inferior glenoid, likely chronic fracture. -continue pain control -consult PT -outpatient f/up with orthopedics Recent Falls: x3 per patient. Unclear etiology, possibly related to ongoing infection, weakness. 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 -continue patient's hydrocortisone HIV: chronic, stable, reportedly last CD4 count >800. Follows with Dr. Becker as outpatient -continue home medications Chronic Pain/Osteoporosis: chronic, stable, follows with Dr. Jones -patient reports supposed to have IV dilaudid pain pump refilled soon as outpatient, however has not run out yet -will give IV dilaudid prn for now -outpatient f/up with pain management Asthma/COPD: chronic, stable, does not appear to be in exacerbation -duonebs prn Hypophosphatemia: phos 2.0 -give K-Phos 500mg daily -monitor electrolytes DVT Prophylaxis: Lovenox Discharge Planning Discharge pending further clinical improvement, likely require additional 2-3 days of IV antibiotic treatment. Steffany Borrero PA-C Nov 14, 2016 12:18 pm
[2016-11-14 12:23] VITALS: BP 125/75; PULSE 81; RESP 20; TEMP 97.9; O2SAT 98
[2016-11-14 15:41] VITALS: BP 110/70; PULSE 78; RESP 20; TEMP 98; O2SAT 95
[2016-11-14] MEDS: HYDROmorphone HCL PF 1 MG/ML VIAL IV PUSH PRN (17:22)
--- NOTE | 2016-11-14 18:15 | PD.WCN.NOT ---
Wound Consult Description: RLE wound Communicated with: MARY Alcantara and Steffany Borrero PA-C Recommendation: Please cleanse wounds to RLE, R 3 toe, and L anterior simth with normal saline or wound cleanser and apply Optifoam AG gentle over wounds. Secure with rolled gauze and tape change every 3 days or PRN if saturated or dislodged. Additional Information: Patient seen on G pod CDU for evaluation of RLE wounds and edema. Patient states , The dog jumped on my leg and scratched me, I also work doing a lot of yard work and that's where these other wounds came from."Patient noted with wounds open to air to RLE. Also has wound to R 3rd toe and L anterior smith. Wound to R medial anterior smith presents as a dry wound with 100% dark red dry tissue at wound base. Wound measures 2cmx 1.5cmx 0.3 cm. Wound has no active drainage. Periwound presents with erythema and heat. Wound to R anterior smith presents with 50% pink tissue and 50% yellow tissue. Wound noted with minimal landaverde/ sanguinous drainage that is without odor. Wound measures 1cm x 0.4 cm x 0.1 cm. Periwound also noted with erythema and heat.Skin tear noted just below the knee is 100% pink and partial thickness, with minimal sanguinous drainage that is without odor. R lower leg is noted 1+ pitting edema and erythema. R 3rd toe is noted with partial thickness wound measuring 1.5cm x 1 cm x 0.1cm . Wound is 100 % pink with minimal sanguinous drainage that is without odor when cleansed with normal saline and gauze pad.Covered all wounds with Optifoam AG non adhesive dressing. Secured wounds on R leg with rolled gauze and tape. Secured toe dressing with paper tape. Wound noted to L anterior smith presents with 100% dark red dry wound bed, without drainage. Wound measures ~0.5cm x ~2cm x ~0.2cm. Cleansed wound with normal saline and applied Optifoam AG non adhesive dressing secured with rolled gauze and tape. Patient needs to keep BLE elevated on pillows to reduce edema. Cyndee Neri [facility] Nov 14, 2016 18:15
[2016-11-14 20:00] VITALS: BP 138/76; PULSE 93; RESP 22; TEMP 97.5; O2SAT 98
[2016-11-14] MEDS: MAGNESIUM OXIDE 400 MG TAB PO SCH (20:16)
[2016-11-14] MEDS: ENOXAPARIN SODIUM 40 MG/0.4 ML SYRINGE SQ SCH (20:17)
[2016-11-15] MEDS: LEVOTHYROXINE SODIUM 100 MCG TAB PO SCH (04:15)
[2016-11-15] MEDS: AMPICILLIN-SULBACTAM INJ 3 GM in SODIUM CHLORIDE 0.9% INJ 100 ML IV SCH ×2 (04:15→09:24)
[2016-11-15] MEDS: CLINDAMYCIN INJ 900 MG in SODIUM CHLORIDE 0.9% INJ 100 ML IV SCH ×3 (04:15→13:26)
[2016-11-15 05:31] LABS: AUTOMATED NEUTROPHIL # 4.3 TH/MM3 (1.8-7.7); BASOPHIL % 0.2 % (0.0-2.0); EOSINOPHIL % 0.4 % (0.0-4.0); HEMATOCRIT 37.7 % (35.0-46.0); LYMPH % 15.8 % (9.0-44.0); LYMPHOCYTE # 0.9 TH/MM3 (1.0-4.8); MEAN CELL VOLUME 96.7 FL (80.0-100.0); MEAN CORPUSCULAR HEMOGLOBIN 31.6 PG (27.0-34.0); MEAN CORPUSCULAR HGB CONC 32.6 % (32.0-36.0); MONO % 5.5 % (0.0-8.0); NEUT % 78.1 % (16.0-70.0); PLATELET COUNT 147 TH/MM3 (150-450); RED CELL DISTRIBUTION WIDTH 16.1 % (11.6-17.2); WHITE BLOOD COUNT 5.5 TH/MM3 (4.0-11.0)
[2016-11-15 05:42] LABS: HEMO FLAGS AUTO DIFF
[2016-11-15 06:30] LABS: POTASSIUM 3.7 MEQ/L (3.5-5.1)
[2016-11-15] MEDS ORDERED: IBUPROFEN 400 MG TAB PO ONE (07:00)
[2016-11-15 08:00] VITALS: BP 142/73; PULSE 62; RESP 16; TEMP 97.7; O2SAT 97
[2016-11-15 08:12] LABS: BANDS 5 % (0-6); EOSINOPHILS 1 % (0-4); METAMYELOCYTES 2 % (0-1); MYELOCYTES 1 % (0-0); NEUTROPHIL # MANUAL DIFF 4.5 TH/MM3 (1.8-7.7); POLYS (SEG NEUTROPHILS) 73 % (16-70); WBC DIFF SAMPLE 100
[2016-11-15 08:14] LABS: PLATELET ESTIMATE SMEAR LOW (NORMAL); PLATELET MORPHOLOGY NORMAL (NORMAL); SCAN/DIFF FINAL DIFF MANUAL; SMUDGE CELLS PRESENT PRESENT
[2016-11-15] MEDS: DOCUSATE SODIUM 50 MG/SENNA 8.6 MG TAB PO SCH ×2 (09:00→20:39)
[2016-11-15] MEDS: SODIUM CHLORIDE 0.9% FLUSH 10 ML FLUSH IV FLUSH SCH ×2 (09:19→20:39)
[2016-11-15] MEDS: PARoxetine HCL 20 MG TAB PO SCH (09:22)
[2016-11-15] MEDS: ASPIRIN EC 81 MG TABEC PO SCH (09:23)
[2016-11-15] MEDS: POTASSIUM PHOSPHATE MONOBASIC 500 MG TAB PO SCH (09:23)
[2016-11-15] MEDS: DICLOFENAC SODIUM 75 MG DELAYED RELEASE TAB PO SCH ×2 (09:23→21:39)
[2016-11-15] MEDS: MULTIVITAMIN TAB PO SCH (09:23)
[2016-11-15] MEDS: FLUCONAZOLE 100 MG TAB PO SCH (09:23)
[2016-11-15] MEDS: DARUNAVIR COBICISTAT PO SCH (09:24)
[2016-11-15] MEDS: PATIENT OWN MEDICATION (Emtricitabine-Tenofovir Alafenamide (Descovy) 1 TAB) PO SCH (09:25)
[2016-11-15] MEDS: HYDROmorphone HCL PF 1 MG/ML VIAL IV PUSH PRN ×3 (09:34→21:40)
[2016-11-15] MEDS: HYDROCORTISONE 10 MG TAB PO SCH (09:43)
[2016-11-15] MEDS: DOLUTEGRAVIR SODIUM 50 MG TAB PO SCH (09:43)
[2016-11-15] MEDS ORDERED: ACETAMINOPHEN 325 MG TAB PO PRN (11:00)
--- NOTE | 2016-11-15 11:31 | HHI.PR ---
Subjective Remarks Follow up for RLE cellulitis. Patient is currently doing well. Denies any chest pain, shortness of breath, fever or chills. Objective Vitals Vital Signs Date Time Temp Pulse Resp B/P Pulse Ox O2 Delivery O2 Flow Rate FiO2 11/15/16 08:00 97.7 62 16 142/73 97 11/14/16 20:00 97.5 93 22 138/76 98 11/14/16 15:41 98.0 78 20 110/70 95 11/14/16 12:23 97.9 81 20 125/75 98 I/O 11/14/16 11/14/16 11/14/16 11/15/16 11/15/16 11/15/16 07:00 15:00 23:00 07:00 15:00 23:00 Intake Total 640 ml 200 ml Balance 640 ml 200 ml Intake Oral 240 ml IV Total 400 ml 200 ml # Voids 2 # Bowel Movements 0 Result Diagram: 11/15/16 0410 11/15/16 0410 Imaging Last Impressions Lower Extremity Ultrasound 11/12/16 1918 Signed Impressions: Service Date/Time: Saturday, November 12, 2016 19:35 - CONCLUSION: No DVT right leg Roberto Foss MD Tibia/Fibula X-Ray 11/12/16 0000 Signed Impressions: Service Date/Time: Saturday, November 12, 2016 19:20 - CONCLUSION: Soft tissue swelling with possible skin defect. No acute bony abnormality. Roberto Foss MD Shoulder X-Ray 11/12/16 0000 Signed Impressions: Service Date/Time: Saturday, November 12, 2016 18:37 - CONCLUSION: 1. Left humeral prosthesis. 2. Large ossified density likely related to fragment arising from the inferior glenoid. This is likely related to chronic fracture. Roberto Foss MD Chest X-Ray 11/12/16 0000 Signed Impressions: Service Date/Time: Saturday, November 12, 2016 18:36 - CONCLUSION: 1. Bilateral upper lobe and bibasilar scarring. 2. Cardiomegaly. Roberto Foss MD Objective Remarks GENERAL: Alert, oriented 3, NAD. SKIN: Warm and dry. RLE with diffuse erythema/warmth/edema, open wound to medial smith approx 2cm, smaller wound at anterior smith with minimal purulent drainage. HEAD: Normocephalic. EYES: No scleral icterus. No injection or drainage. NECK: Supple, trachea midline. No JVD or lymphadenopathy. CARDIOVASCULAR: Regular rate and rhythm without murmurs, gallops, or rubs. RESPIRATORY: Breath sounds equal bilaterally. No accessory muscle use. GASTROINTESTINAL: Abdomen soft, non-tender, nondistended. MUSCULOSKELETAL: No cyanosis. 2+ right lower extremity edema, 1+ left lower extremity edema. BACK: Nontender without obvious deformity. No CVA tenderness. 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 Right Leg Cellulitis: Failed Outpatient Treatment with oral antibiotics; Immunocompromised with HIV. Concern for pasteurella with dog bite/scratch. Right tib-fib xray images reviewed, shows soft tissue swelling with possible skin defect, no fracture. RLE Doppler U/S negative for DVT. Afebrile, no leukocytosis, however CBC with left shift. Lactic acid 2.0. -Wound cx is growing Staph Aureus and Pseudomonas Will switch abx to Levaquin PO. -Blood cultures with 1/4 growing Staph Sp Coagulase Negative, suspect contaminant -Pain control with IV Dilaudid prn -Consulted wound care UTI: UA with +bacteria. Urine culture with Klebsiella pneumoniae. - on antibiotics as above Oropharyngeal Candidiasis: exam consistent with thrush. Immunocompromised secondary to HIV. Failed treatment with Nystatin as outpatient. - started on Diflucan 150mg po qd - monitor for improvement Left Shoulder Pain: secondary to fall. Shoulder xray with left humeral prosthesis; large ossified density likely related to fragment arising from inferior glenoid, likely chronic fracture. -continue pain control -consult PT -outpatient f/up with orthopedics Recent Falls: x3 per patient. Unclear etiology, possibly related to ongoing infection, weakness. 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 -continue patient's hydrocortisone HIV: chronic, stable, reportedly last CD4 count >800. Follows with Dr. Becker as outpatient -continue home medications Chronic Pain/Osteoporosis: chronic, stable, follows with Dr. Jones -patient reports supposed to have IV dilaudid pain pump refilled soon as outpatient, however has not run out yet -will give IV dilaudid prn for now -outpatient f/up with pain management Asthma/COPD: chronic, stable, does not appear to be in exacerbation - duonebs prn Hypophosphatemia: phos 2.0 - given K-Phos 500mg daily - monitor electrolytes DVT Prophylaxis: Lovenox Probable discharge on 11/16/2016. Marcos Veronica DO Nov 15, 2016 11:31
[2016-11-15 12:00] VITALS: BP 139/72; PULSE 75; RESP 16; TEMP 98.4; O2SAT 98
[2016-11-15] MEDS ORDERED: LEVOFLOXACIN 750 MG TAB PO SCH (12:00)
[2016-11-15] MEDS: ACETAMINOPHEN/HYDROcodone 325 MG/7.5 MG TAB PO PRN ×2 (13:33→20:37)
[2016-11-15 16:00] VITALS: BP 129/70; PULSE 74; RESP 17; TEMP 98.8; O2SAT 100
[2016-11-15 20:00] VITALS: BP 130/86; PULSE 88; RESP 18; TEMP 99.7; O2SAT 99
[2016-11-15] MEDS: MAGNESIUM OXIDE 400 MG TAB PO SCH (20:36)
[2016-11-15] MEDS: ENOXAPARIN SODIUM 40 MG/0.4 ML SYRINGE SQ SCH (20:39)
[2016-11-16] VITALS: BP_SYST 130; BP_SYST 132; BP_DIAS 86; PULSE 82; RESP 16; TEMP 98.9; O2SAT 98
[2016-11-16] MEDS: ACETAMINOPHEN/HYDROcodone 325 MG/7.5 MG TAB PO PRN ×2 (01:52→09:45)
[2016-11-16] MEDS: HYDROmorphone HCL PF 1 MG/ML VIAL IV PUSH PRN ×2 (03:33→07:57)
[2016-11-16] MEDS: LEVOTHYROXINE SODIUM 100 MCG TAB PO SCH (06:09)
[2016-11-16] MEDS: PATIENT OWN MEDICATION (Emtricitabine-Tenofovir Alafenamide (Descovy) 1 TAB) PO SCH (07:51)
[2016-11-16] MEDS: SODIUM CHLORIDE 0.9% FLUSH 10 ML FLUSH IV FLUSH SCH (07:51)
[2016-11-16] MEDS: DICLOFENAC SODIUM 75 MG DELAYED RELEASE TAB PO SCH (07:52)
[2016-11-16] MEDS: HYDROCORTISONE 10 MG TAB PO SCH (07:53)
[2016-11-16] MEDS: ASPIRIN EC 81 MG TABEC PO SCH (07:54)
[2016-11-16] MEDS: POTASSIUM PHOSPHATE MONOBASIC 500 MG TAB PO SCH (07:54)
[2016-11-16] MEDS: DOCUSATE SODIUM 50 MG/SENNA 8.6 MG TAB PO SCH (07:55)
[2016-11-16] MEDS: FLUCONAZOLE 100 MG TAB PO SCH (07:55)
[2016-11-16] MEDS: DOLUTEGRAVIR SODIUM 50 MG TAB PO SCH (07:56)
[2016-11-16] MEDS: MULTIVITAMIN TAB PO SCH (07:56)
[2016-11-16] MEDS: PARoxetine HCL 20 MG TAB PO SCH (07:56)
[2016-11-16] MEDS: DARUNAVIR COBICISTAT PO SCH (07:58)
[2016-11-16 08:00] VITALS: BP 142/86; PULSE 74; RESP 20; TEMP 98.6; O2SAT 99
[2016-11-16] MEDS ORDERED: NYST1000 SWISH-SWAL (10:42)
[2016-11-16] MEDS ORDERED: LEVA750T9 PO (10:42)
[2016-11-16] MEDS ORDERED: DIFL100T PO (10:42)
[2016-11-16] MEDS ORDERED: MSIR15 PO (10:43)
--- NOTE | 2016-11-16 10:45 | HHI.DS ---
Discharge Summary Admission Date Nov 13, 2016 at 10:45 am Discharge Date: Nov 16, 2016 Admitting Diagnosis Dog Bite Cellulitis. 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 Veronica on 11/13/16 at 10:43. This note was transcribed by scribe OLYA Lawler. I, Dr. Sal Veronica personally performed the history, physical exam, and medical decision making; and confirmed the accuracy of the information in the transcribed note. Authenticated by Dr. Sal Veronica on 11/13/16 at 22:14. 56-year-old female with history of Winona's disease, HIV, asthma, COPD, osteoporosis, chronic pain with Dilaudid pain pump, presents with multiple complaints including right leg infection [id number], left shoulder pain, fall, sore throat, and cough. The patient's main concern is her right leg infection. She reports 1 month ago her dog jumped up into her bed and scratched her right leg resulting in a wound. She states she has been trying to keep it clean, and finished a course of unknown oral antibiotics prescribed by her PCP however her symptoms continue to worsen. She states she's also been in a swimming pool which she believes is making it worse. She states then 2 days ago her right leg became significantly more erythematous, edematous, and painful; denies any drainage. She reports subjective fevers at home, temp 99.8. She also reports left shoulder pain after a fall. She states she tripped going up the stairs. She states she's fallen 3 times recently. Denies loss of consciousness. She also reports sore throat which she believes is related to thrush. She has been taking nystatin for thrush with not much relief. She has cough productive of green sputum. Denies any chest pain or shortness of breath. She follows with Dr. Becker for HIV, compliant with medications, reportedly last CD4 count over 800. The patient has no other medical complaints at this time. CBC/BMP: 11/15/16 0410 11/15/16 0410 Significant Findings Laboratory Tests Test 11/15/16 04:10 Red Blood Count 3.90 MIL/MM3 (4.00-5.30) Platelet Count 147 TH/MM3 (150-450) Neutrophils (%) (Auto) 78.1 % (16.0-70.0) Lymphocytes # (Auto) 0.9 TH/MM3 (1.0-4.8) Neutrophils % (Manual) 73 % (16-70) Metamyelocytes 2 % (0-1) Myelocytes 1 % (0-0) Platelet Estimate LOW (NORMAL) Chloride Level 110 MEQ/L (98-107) Anion Gap 4 MEQ/L (5-15) Blood Urea Nitrogen 22 MG/DL (7-18) Estimat Glomerular Filtration 68 ML/MIN (>89) Rate Random Glucose 111 MG/DL (74-106) Calcium Level 8.2 MG/DL (8.5-10.1) Phosphorus Level 1.9 MG/DL (2.5-4.9) Imaging Last Impressions Lower Extremity Ultrasound 11/12/16 1918 Signed Impressions: Service Date/Time: Saturday, November 12, 2016 19:35 - CONCLUSION: No DVT right leg Roberto Foss MD Tibia/Fibula X-Ray 11/12/16 0000 Signed Impressions: Service Date/Time: Saturday, November 12, 2016 19:20 - CONCLUSION: Soft tissue swelling with possible skin defect. No acute bony abnormality. Roberto Foss MD Shoulder X-Ray 11/12/16 0000 Signed Impressions: Service Date/Time: Saturday, November 12, 2016 18:37 - CONCLUSION: 1. Left humeral prosthesis. 2. Large ossified density likely related to fragment arising from the inferior glenoid. This is likely related to chronic fracture. Roberto Foss MD Chest X-Ray 11/12/16 0000 Signed Impressions: Service Date/Time: Saturday, November 12, 2016 18:36 - CONCLUSION: 1. Bilateral upper lobe and bibasilar scarring. 2. Cardiomegaly. Roberto Foss MD PE at Discharge GENERAL: Alert, oriented 3, NAD. SKIN: Warm and dry. RLE with diffuse erythema/warmth/edema, open wound to medial smith approx 2cm, smaller wound at anterior smith with minimal purulent drainage. HEAD: Normocephalic. EYES: No scleral icterus. No injection or drainage. NECK: Supple, trachea midline. No JVD or lymphadenopathy. CARDIOVASCULAR: Regular rate and rhythm without murmurs, gallops, or rubs. RESPIRATORY: Breath sounds equal bilaterally. No accessory muscle use. GASTROINTESTINAL: Abdomen soft, non-tender, nondistended. MUSCULOSKELETAL: No cyanosis. 2+ right lower extremity edema, 1+ left lower extremity edema. BACK: Nontender without obvious deformity. No CVA tenderness. Pt update on day of discharge Patient is doing well. No acute concerns. Ambulating well in the room without any assistance. No fever, chills. Hospital Course 56-year-old female with history of Gianluca's disease, HIV, asthma, COPD, osteoporosis, chronic pain with Dilaudid pain pump, presents with multiple complaints including right leg infection [id number], left shoulder pain, fall, sore throat, and cough. Right Leg Cellulitis: Failed Outpatient Treatment with oral antibiotics; Immunocompromised with HIV. Concern for pasteurella with dog bite/scratch. Right tib-fib xray images reviewed, shows soft tissue swelling with possible skin defect, no fracture. RLE Doppler U/S negative for DVT. Afebrile, no leukocytosis, however CBC with left shift. Lactic acid 2.0. -Wound cx is growing Staph Aureus and Pseudomonas. Switched abx to Levaquin PO. -Blood cultures with 1/4 growing Staph Sp Coagulase Negative, suspect contaminant -Pain control with IV Dilaudid prn -Consulted wound care UTI: UA with +bacteria. Urine culture with Klebsiella pneumoniae. - on antibiotics as above Oropharyngeal Candidiasis: exam consistent with thrush. Immunocompromised secondary to HIV. Failed treatment with Nystatin as outpatient. - Diflucan 150mg po qd - monitor for improvement Left Shoulder Pain: secondary to fall. Shoulder xray with left humeral prosthesis; large ossified density likely related to fragment arising from inferior glenoid, likely chronic fracture. -continue pain control -consult PT -outpatient f/up with orthopedics Recent Falls: x3 per patient. Unclear etiology, possibly related to ongoing infection, weakness. 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 -continue patient's hydrocortisone HIV: chronic, stable, reportedly last CD4 count >800. Follows with Dr. Becker as outpatient -continue home medications Chronic Pain/Osteoporosis: chronic, stable, follows with Dr. Jones -patient reports supposed to have IV dilaudid pain pump refilled soon as outpatient, however has not run out yet -will give IV dilaudid prn for now -outpatient f/up with pain management Asthma/COPD: chronic, stable, does not appear to be in exacerbation - duonebs prn Hypophosphatemia: phos 2.0 - given K-Phos 500mg daily - monitor electrolytes DVT Prophylaxis: Lovenox Pt Condition on Discharge: Good Discharge Disposition: Discharge Home Discharge Time: > 30 minutes Discharge Instructions DIET: Follow Instructions for: As Tolerated, No Restrictions, Heart Healthy Diet Activities you can perform: Regular-No Restrictions Follow up Referrals: Infectious Disease - 1 Week with Tawnya Becker MD PCP Follow-up - 1 Week New Medications: Morphine IR (Morphine IR) 15 Mg Tab 15 MG PO Q6HR PRN PAIN #12 Ref 0 TAB Nystatin Liq (Nystatin Liq) 100,000 unit/ml Susp 5 ML SWISH-SWAL QID Infection #30 Ref 0 ML Fluconazole (Diflucan) 100 Mg Tab 150 MG PO DAILY Infection #21 TAB Levofloxacin (Levaquin) 750 Mg Tablet 750 MG PO Q24H Infection #10 TAB Continued Medications: Aspirin DR (Aspirin Adult Low Strength) 81 Mg Tabdr 81 MG PO DAILY TAB Cholecalciferol (Vitamin D3) 50,000 Unit Cap 40811 UNITS PO Q7D Nutritional Supplement #30 Ref 0 CAP Darunavir-Cobicistat (Prezcobix) 800-150 Mg Tab 1 TAB PO DAILY Mgmt Viral Infection #30 Ref [address] (Diclofenac Sodium DR) 75 Mg Tabdr 75 MG PO BID #60 Ref 0 TAB Dolutegravir (Tivicay) 50 Mg Tab 50 MG PO DAILY Mgmt Viral Infection #30 Ref 0 TAB Emtricitabine-Tenofovir Alafenamide (Descovy) 200-25 mg Tab 1 TAB PO DAILY Mgmt Viral Infection #30 Ref 0 TAB Hydrocortisone (Hydrocortisone) 10 Mg Tab 20 MG PO DAILY Take with food to decrease GI upset #30 Ref 0 TAB Levothyroxine (Levothyroxine) 100 Mcg Tab 100 MCG PO DAILY Thyroid #30 Ref 0 TAB Magnesium (Magnesium) 400 Mg Tab 400 MG PO HS Nutritional Supplement Ref 0 TAB Multiple Vitamin (Thera) 1 Tab Tab 1 TAB PO DAILY Paroxetine HCl (Paxil) 20 Mg Tablet 20 MG PO DAILY Prasterone (Dhea)/Calcium Carb (Dhea 50 mg Tablet) 1 Each Tablet 50 MG PO DAILY Rosuvastatin (Crestor) 5 Mg Tab 5 MG PO MOWEFR Take 1 tablet at bedtime on Friday,Friday and Friday Cholesterol Management #30 Ref 0 TAB Terbinafine (Lamisil) 250 Mg Tab 250 MG PO DAILY Manage Fungal Infection Ref 0 TAB ([Hydromorphone Pump]) DIRECTED Discontinued Medications: Morphine ER (Morphine ER) 15 Mg Tab 15 MG PO DAILY Pain Management Ref 0 TAB Marcos Veronica DO Nov 16, 2016 10:45
== END 2016-11-16 12:02 | disposition home or self-care (01) | DRG 602 ==
LOC: NED 12:38 → NEDA 20:29 → INTOOBSV 20:29 → NEPGCP 11-13 01:47 → OBSVTOIN 11-13 10:45 → N07B 11-14 19:04
PROVIDERS: ADMIT Hospitalist; ATTEND Hospitalist
DX: L03.115 Cellulitis of right lower limb (principal); B20 Human immunodeficiency virus [HIV] disease; B37.89 Other sites of candidiasis; E27.1 Primary adrenocortical insufficiency; A28.0 Pasteurellosis; B37.0 Candidal stomatitis; N39.0 Urinary tract infection, site not specified; J44.9 Chronic obstructive pulmonary disease, unspecified; M81.0 Age-related osteoporosis without current pathological fracture; G89.29 Other chronic pain; E83.39 Other disorders of phosphorus metabolism; M25.512 Pain in left shoulder; B96.1 Klebsiella pneumoniae [K. pneumoniae] as the cause of diseases classified elsewhere; B95.61 Methicillin susceptible Staphylococcus aureus infection as the cause of diseases classified elsewhere; B96.5 Pseudomonas (aeruginosa) (mallei) (pseudomallei) as the cause of diseases classified elsewhere; W54.0XXA Bitten by dog, initial encounter; Z86.73 Personal history of transient ischemic attack (TIA), and cerebral infarction without residual deficits; Z85.828 Personal history of other malignant neoplasm of skin; Z87.891 Personal history of nicotine dependence; Z96.89 Presence of other specified functional implants
CPT/HCPCS: 71010; 73030; 73590; 80048; 80053; 81001; 83605; 83735; 84100; 85007; 85025; 85027; 85610; 85730; 87040; 87070; 87077; 87086; 87186; 87205; 93971; 96374; G0378; G8987-GP; G8988-GP; J0295; J1170; J1650; J2543; J3370; J7050